=== PATIENT | male | born 1995 | race Caucasian/White ===

== ENCOUNTER 2019-03-02 02:11 | Emergency (ER) | payer OTHER ==
[~2019-03-02] VITALS: Ht 180.3 cm; Wt 72.7 kg
[~2019-03-02 02:11] MED LIST: CEPHALEXIN500 M1 PO; LORTAB 5/500 501 TAB PO
[2019-03-02 02:16] VITALS: TEMP 98
[2019-03-02 02:59] VITALS: BP 125/85; PULSE 86
== END 2019-03-02 02:59 | disposition home or self-care (01) ==
LOC: COL.ER 02:11
DX: S93.402A Sprain of unspecified ligament of left ankle, initial encounter (principal); Z23 Encounter for immunization; W23.0XXA Caught, crushed, jammed, or pinched between moving objects, initial encounter; Y92.410 Unspecified street and highway as the place of occurrence of the external cause